=== PATIENT | female | born 1980 | race Hispanic/Latino ===

== ENCOUNTER 2017-12-09 15:37 | Inpatient (IN) | payer MEDICAID ==
[~2017-12-09] VITALS: Ht 162.6 cm; Wt 82.1 kg
[~2017-12-09 15:37] MED LIST: CELE-84 PO; GABA-531 PO; LETR2.5T6 PO; MORP15TA PO; MORPHINE PO; SENN-175 PO; [UNRECOGNIZED DRUG - CODE] PO
[2017-12-09 17:04] VITALS: BP 136/71
[2017-12-09 17:32] LABS: HEMATOCRIT 34.8 % (36-48); MEAN CORPUSCULAR HEMOGLOBIN 34.7 pg (27.0-33.0); MEAN CORPUSCULAR HGB CONC 35.7 g/dL (32.0-36.0); MEAN CORPUSCULAR VOLUME 97.3 fL (79-99); NUCLEATED RED BLOOD CELLS 0.1 % (0.0-0.19); PLATELET COUNT (AUTO) 182 K/uL (130-400); RED BLOOD CELL COUNT(AUTO) 3.58 MIL/uL (4.00-5.50)
[2017-12-09 17:45] LABS: ALBUMIN 4.1 g/dL (3.5-5.0); BILIRUBIN,TOTAL 0.5 mg/dL (0.2-1.0); CREATININE 0.9 mg/dL (0.5-1.5); POTASSIUM 4.1 mmol/L (3.5-5.1); TOTAL PROTEIN, SERUM 7.2 g/dL (6.0-8.3)
[2017-12-09] MEDS ORDERED: ONDANSETRON HCL 4 MG/2 ML VIAL IVP PRN (17:45)
[2017-12-09] MEDS ORDERED: SODIUM CHLORIDE 0.9% 1000ML 1,000 ML IV SCH (17:45)
[2017-12-09] MEDS ORDERED: PALB125C PO (18:00)
[2017-12-09 20:30] VITALS: BP 133/77
[2017-12-09] MEDS: FAMOTIDINE/PF 20 MG/2 ML VIAL IV SCH (22:17)
[2017-12-09] MEDS: LACTATED RINGERS 1000ML 1,000 ML IV SCH (22:17)
[2017-12-09] MEDS: MORPHINE SULFATE 2 MG/ML 1ML SYG IVP PRN (22:19)
[2017-12-10] VITALS: BP 122/66
[2017-12-10 01:19] LABS: APPEARANCE,URINE CLEAR (CLEAR); BILIRUBIN,URINE NEGATIVE (NEGATIVE); COLOR,URINE YELLOW (YELLOW); GLUCOSE, URINE (UA) NEGATIVE (NEGATIVE); KETONES,URINE 5 mg/dL (NEGATIVE); LEUKOCYTE ESTERASE ,URINE TRACE (NEGATIVE); NITRATE,URINE NEGATIVE (NEGATIVE); OCCULT BLOOD,URINE TRACE-INTACT (NEGATIVE); PROTEIN,URINE NEGATIVE (NEGATIVE); UROBILINOGEN,URINE 0.2 mg/dL (0.2-1.0)
[2017-12-10 01:25] LABS: BACTERIA,URINE Rare /HPF (None Seen); WBC,URINE 0-1 /HPF (0-1)
[2017-12-10 04:00] VITALS: BP 119/58
[2017-12-10] MEDS: LACTATED RINGERS 1000ML 1,000 ML IV SCH ×2 (06:40→12:12)
[2017-12-10] MEDS: MORPHINE SULFATE 2 MG/ML 1ML SYG IVP PRN ×2 (06:40→23:22)
[2017-12-10 07:30] VITALS: BP 105/53
[2017-12-10] MEDS: FAMOTIDINE/PF 20 MG/2 ML VIAL IV SCH ×2 (08:36→20:44)
[2017-12-10 11:00] VITALS: BP 126/63
[2017-12-10 16:00] VITALS: BP 131/73
[2017-12-10 20:00] VITALS: BP 148/57
[2017-12-10 21:52] LABS: CREATININE 0.9 mg/dL (0.5-1.5); POTASSIUM 3.8 mmol/L (3.5-5.1)
[2017-12-11] VITALS: BP 123/69
[2017-12-11] MEDS: LACTATED RINGERS 1000ML 1,000 ML IV SCH ×4 (02:50→12:40)
[2017-12-11 04:00] VITALS: BP 132/60
[2017-12-11 08:12] VITALS: BP 108/52
[2017-12-11] MEDS: FAMOTIDINE/PF 20 MG/2 ML VIAL IV SCH ×2 (08:40→20:14)
[2017-12-11 11:54] VITALS: BP 125/70
[2017-12-11] MEDS ORDERED: MORPHINE SULFATE 15 MG TABLET.SA PO PRN ×2 (14:15)
[2017-12-11 17:13] VITALS: BP 124/67
[2017-12-11 20:00] VITALS: BP 132/79
[2017-12-11] MEDS: CELECOXIB 200 MG CAP PO SCH (20:14)
[2017-12-12] VITALS: BP 141/68
[2017-12-12] MEDS: MORPHINE SULFATE 2 MG/ML 1ML SYG IVP PRN (00:02)
[2017-12-12] MEDS: LACTATED RINGERS 1000ML 1,000 ML IV SCH ×3 (03:22→12:00)
[2017-12-12 04:00] VITALS: BP 113/63
[2017-12-12 07:00] VITALS: BP 108/63
[2017-12-12] MEDS ORDERED: Letrozole 2.5 MG PO SCH (09:00)
[2017-12-12] MEDS: FAMOTIDINE/PF 20 MG/2 ML VIAL IV SCH ×2 (09:57→09:59)
[2017-12-12] MEDS: CELECOXIB 200 MG CAP PO SCH (09:57)
[2017-12-12 11:00] VITALS: BP 138/73
== END 2017-12-12 14:21 | disposition home or self-care (01) | DRG 247 ==
LOC: EDH 15:37 → OBSVTOIN 15:38 → EDHIP 15:38 → 3DH 17:03
PROVIDERS: ADMIT Internal Medicine Hematology & Oncology; ATTEND Internal Medicine Hematology & Oncology
DX: K56.600 Partial intestinal obstruction, unspecified as to cause (principal); C79.51 Secondary malignant neoplasm of bone; C50.919 Malignant neoplasm of unspecified site of unspecified female breast; M84.40XA Pathological fracture, unspecified site, initial encounter for fracture; E86.0 Dehydration; Z51.11 Encounter for antineoplastic chemotherapy; Z96.649 Presence of unspecified artificial hip joint
CPT/HCPCS: 36415; 80048; 80053; 81001; 85027; 87088; 87186; J2405; J3490; J7120

== ENCOUNTER 2018-07-17 07:36 | Inpatient (IN) | payer MEDICAID ==
[~2018-07-17] VITALS: Ht 165.1 cm; Wt 81.6 kg
[~2018-07-17 07:36] MED LIST changes: -GABA-531 PO; +MORP15T PO; -MORP15TA PO; -MORPHINE PO; +PALB125C PO; +PREG75 PO; -SENN-175 PO; -[UNRECOGNIZED DRUG - CODE] PO
[2018-07-17 07:56] LABS: BASOPHILS % (AUTO) 0.2 % (0.0-5.0); HEMATOCRIT 33.2 % (36-48); MEAN CORPUSCULAR HEMOGLOBIN 34.2 pg (27.0-33.0); MEAN CORPUSCULAR VOLUME 97.6 fL (79-99); MONOCYTES % (AUTO) 6.9 % (3.0-13.0); NEUTROPHILS % (AUTO) 84.9 % (40.0-77.0); NUCLEATED RED BLOOD CELLS 0.1 % (0.0-0.19); PLATELET COUNT (AUTO) 256 K/uL (130-400); RED CELL DISTRIBUTION WIDTH 16.9 % (11.0-15.5); WHITE BLOOD COUNT (AUTO) 5.8 K/uL (4.8-10.8)
[2018-07-17 08:02] LABS: CREATININE 1.1 mg/dL (0.5-1.5); POTASSIUM 3.1 mmol/L (3.5-5.1)
[2018-07-17 08:08] LABS: ALBUMIN 3.4 g/dL (3.5-5.0); BILIRUBIN,TOTAL 0.3 mg/dL (0.2-1.0); TOTAL PROTEIN, SERUM 6.6 g/dL (6.0-8.3)
[2018-07-17 08:14] LABS: APPEARANCE,URINE Clear (CLEAR); BILIRUBIN,URINE Negative (NEGATIVE); COLOR,URINE Yellow (YELLOW); GLUCOSE, URINE (UA) Negative (NEGATIVE); KETONES,URINE Negative (NEGATIVE); LEUKOCYTE ESTERASE ,URINE Trace (NEGATIVE); NITRATE,URINE Negative (NEGATIVE); OCCULT BLOOD,URINE Trace (NEGATIVE); PH,URINE 7.5 (5.0-8.0); PROTEIN,URINE Negative (NEGATIVE); UROBILINOGEN,URINE 0.2 mg/dL (0.2-1.0)
[2018-07-17] MEDS ORDERED: SODIUM CHLORIDE 0.9% 1000ML 1,000 ML IV ONE (08:20)
[2018-07-17] MEDS ORDERED: POTASSIUM BICARB/CIT AC 25 MEQ TABLET.EFF ONE (08:20)
[2018-07-17 09:01] LABS: BACTERIA,URINE Rare /HPF (None Seen); RBC,URINE 0-1 /HPF (0-1); SQUAMOUS EPITHELIAL CELL,UR Rare /HPF (0-2); WBC,URINE 0-1 /HPF (0-1)
[2018-07-17] MEDS ORDERED: SODIUM CHLORIDE 0.9% 50 ML IV ONE (09:55)
[2018-07-17] MEDS ORDERED: ZOSYN 3.375GM+NS 50ML 50 ML IV ONE (09:55)
[2018-07-17] MEDS ORDERED: SODIUM CHLORIDE 0.9% 1000ML 2,000 ML IV ONE (09:55)
--- NOTE | 2018-07-17 15:35 | NUR ---
ER ADMIT PATIENT RECEIVED FROM ER VIA WHEELCHAIR ACCOMPANIED BY FEMALE VISITOR. NO OBVIOUS SIGNS OF DISTRESS. IV TO THE LEFT ANTECUBITAL IS PATENT WITH NO REDNESS OR SWELLING NOTED. FLUSHES WELL. BOTH HAVE BEEN ORIENTED TO ROOM AND USE OF CALL LIGHT. BED IS IN LOWEST POSITION AND LOCKED WITH ALL PERSONAL BELONGINGS WITHIN REACH.
[2018-07-17 15:46] VITALS: BP 129/83
[2018-07-17] MEDS ORDERED: DEXA4TAB PO (16:07)
[2018-07-17] MEDS ORDERED: LORA1TAB3 PO (16:07)
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
[2018-07-17] MEDS ORDERED: KETOROLAC TROMETHAMINE 30MG/ML IV PRN (16:15)
[2018-07-17] MEDS: SODIUM CHLORIDE 0.9% 1000ML 1,000 ML IV SCH (16:41)
[2018-07-17] MEDS ORDERED: POTASSIUM CHLORIDE 10% ELIXIR 20 MEQ/15 ML UDCUP PO PRN (18:00)
[2018-07-17] MEDS ORDERED: POTASSIUM CHLORIDE 20MEQ/100ML 100 ML IV PRN (18:00)
[2018-07-17] MEDS ORDERED: LIDOCAINE HCL-MPF 1% 2ML VIAL IVP PRN (18:00)
--- NOTE | 2018-07-17 18:00 | NUR ---
PSYCHIATRY DR. HOLDEN HAS BEEN PAGED 3 TIMES THIS AFTERNOON AND WE HAVE NOT RECEIVED A CALL BACK. WILL ENDORSE TO ONCOMING SHIFT.
[2018-07-17] MEDS: POTASSIUM CHLORIDE 20 MEQ ERTAB PO PRN (18:22)
[2018-07-17 19:42] VITALS: BP 130/59
[2018-07-17 23:58] VITALS: BP 132/71
[2018-07-18] MEDS: LORAZEPAM 2 MG/ML 1 ML VIAL IVP PRN ×4 (00:10→21:22)
[2018-07-18 04:00] VITALS: BP 112/63
[2018-07-18] MEDS: POTASSIUM CHLORIDE 20 MEQ ERTAB PO PRN ×4 (06:14→22:52)
[2018-07-18 07:45] VITALS: BP 125/85
[2018-07-18 08:25] LABS: BASOPHILS % (AUTO) 0.3 % (0.0-5.0); EOSINOPHILS % (AUTO) 0.3 % (0.0-8.0); HEMATOCRIT 31.8 % (36-48); MEAN CORPUSCULAR HEMOGLOBIN 32.8 pg (27.0-33.0); MEAN CORPUSCULAR HGB CONC 33.8 g/dL (32.0-36.0); MONOCYTES % (AUTO) 5.9 % (3.0-13.0); NEUTROPHILS % (AUTO) 75.5 % (40.0-77.0); NUCLEATED RED BLOOD CELLS 0.1 % (0.0-0.19); PLATELET COUNT (AUTO) 219 K/uL (130-400); RED BLOOD CELL COUNT(AUTO) 3.28 MIL/uL (4.00-5.50); RED CELL DISTRIBUTION WIDTH 17.3 % (11.0-15.5); WHITE BLOOD COUNT (AUTO) 3.7 K/uL (4.8-10.8)
[2018-07-18 08:38] LABS: ALBUMIN 2.9 g/dL (3.5-5.0); BILIRUBIN,TOTAL 0.3 mg/dL (0.2-1.0); CREATININE 0.6 mg/dL (0.5-1.5); MAGNESIUM 1.9 mg/dL (1.80-2.40); POTASSIUM 3.3 mmol/L (3.5-5.1)
[2018-07-18] MEDS ORDERED: DRON2.5C12 PO (09:08)
[2018-07-18 11:39] VITALS: BP 130/59
[2018-07-18 16:20] VITALS: BP 123/69
--- NOTE | 2018-07-18 17:14 | NUR ---
INITIAL: Met with pt this afternoon to discuss dcp. Visitors in the room, per pt ok to discuss dcp. Prior to admission she was living w her parents. Used a cane for ambulation but recently was using a rollator. Pt has at home a provider 3hr/day. Pt states that she also has a tub bench. Per pt her parents provide transportation where needed. Pt states that she feels safe and comfortable to return home at mt. Will continue to follow and wait for Md recommendations. Addendum: 07/18/18 at 1717 by RITU CONDE CM Amended: Links added.
[2018-07-18 19:48] VITALS: BP 116/68
[2018-07-18] MEDS: CELECOXIB 200 MG CAP PO SCH (21:22)
[2018-07-18] MEDS: SODIUM CHLORIDE 0.9% 1000ML 1,000 ML IV SCH (21:22)
[2018-07-18] MEDS: DRONABINOL 2.5 MG CAP PO SCH (21:22)
[2018-07-18 23:47] VITALS: BP 108/61
[2018-07-19 04:00] VITALS: BP 129/78
[2018-07-19] MEDS: LORAZEPAM 2 MG/ML 1 ML VIAL IVP PRN ×3 (05:41→21:20)
[2018-07-19] MEDS: CELECOXIB 200 MG CAP PO SCH ×2 (07:45→21:19)
[2018-07-19] MEDS: DEXAMETHASONE 4 MG TAB PO SCH (07:45)
--- NOTE | 2018-07-19 09:30 | NUR ---
DR. KARIE TIWARI IN TO SEE PATIENT. NO NEW ORDERS AT THIS TIME. D/C PLAN FOR TOMORROW. WAS NOTIFIED OF PSYCHIATRIST NOT ANSWERING PAGES FOR CONSULT. DR. TIWARI STATES NOT TO BOTHER WITH THAT TODAY. HE WILL TAKE CARE OF IT TOMORROW.
[2018-07-19 11:28] VITALS: BP 116/59
[2018-07-19 16:30] VITALS: BP 121/68
[2018-07-19 19:36] VITALS: BP 125/73
[2018-07-19] MEDS: DRONABINOL 2.5 MG CAP PO SCH (21:19)
[2018-07-19] MEDS: SODIUM CHLORIDE 0.9% 1000ML 1,000 ML IV SCH (21:20)
[2018-07-20] VITALS (7 sets, daily range): BP systolic 100–144; BP diastolic 59–81
[2018-07-20] MEDS: SODIUM CHLORIDE 0.9% 1000ML 1,000 ML IV SCH (04:15)
[2018-07-20] MEDS: LORAZEPAM 2 MG/ML 1 ML VIAL IVP PRN ×2 (07:00→13:37)
[2018-07-20] MEDS: CELECOXIB 200 MG CAP PO SCH ×2 (09:50→21:10)
[2018-07-20] MEDS: DEXAMETHASONE 4 MG TAB PO SCH (09:50)
--- NOTE | 2018-07-20 09:55 | NUR ---
Pt. took 2mg of Decadron, states she is supposed to start with 2mg today as she is being weaned down.
--- NOTE | 2018-07-20 10:55 | NUR ---
Called Dr. Richards office r/t consult, faxed face sheet.
--- NOTE | 2018-07-20 12:31 | NUR ---
Dr. Gonzalez in to see pt, notified him pt. stated she was supposed to decrease her Decadron to 2mg daily and that I only gave her 2mg. stated yes, order to be changed. Also notified him I called Dr. Marcelo office this am for the consult.
[2018-07-20] MEDS ORDERED: LORAZEPAM 1 MG TABLET PO SCH (18:30)
[2018-07-20] MEDS ORDERED: RISPERIDONE 1 MG TABLET PO SCH (21:00)
[2018-07-20] MEDS: DRONABINOL 2.5 MG CAP PO SCH (21:11)
[2018-07-21] MEDS: SODIUM CHLORIDE 0.9% 1000ML 1,000 ML IV SCH ×2 (00:15→21:46)
[2018-07-21 03:50] VITALS: BP 123/72
[2018-07-21 07:02] VITALS: BP 120/65
[2018-07-21] MEDS: CELECOXIB 200 MG CAP PO SCH ×2 (09:00→21:43)
[2018-07-21] MEDS: DEXAMETHASONE 4 MG TAB PO SCH (09:01)
[2018-07-21] MEDS: LORAZEPAM 2 MG/ML 1 ML VIAL IVP PRN (09:01)
[2018-07-21 11:48] VITALS: BP 124/78
[2018-07-21] MEDS ORDERED: LORAZEPAM 0.5 MG TABLET PO SCH ×2 (14:15→18:00)
[2018-07-21 16:09] VITALS: BP 126/78
[2018-07-21 19:30] VITALS: BP 123/67
[2018-07-21] MEDS ORDERED: RISPERIDONE 1 MG TABLET PO SCH (21:00)
[2018-07-21] MEDS: DRONABINOL 2.5 MG CAP PO SCH (21:43)
[2018-07-21 23:40] VITALS: BP 99/42
[2018-07-22 08:00] VITALS: BP 114/57
[2018-07-22] MEDS: CELECOXIB 200 MG CAP PO SCH (08:46)
[2018-07-22] MEDS: DEXAMETHASONE 4 MG TAB PO SCH (08:46)
[2018-07-22] MEDS ORDERED: LORAZEPAM 0.5 MG TABLET PO SCH (09:00)
[2018-07-22] MEDS ORDERED: RISPERIDONE 1 MG TABLET PO SCH (09:00)
--- NOTE | 2018-07-22 10:00 | NUR ---
DR. TIWARI RECEIVED PHONE CALL FROM REGARDING PATIENT STATUES. INFORMED MD THAT PATIENT IS DOING WELL TODAY, COOPERATIVE, REPORTS READY TO GO HOME TODAY AND PATIENT APPEARS TO BE IN A HAPPY MOOD. MD REPLIED IT WAS OKAY TO PROCEED WITH DISCHARGE AND FOR PATIENT TO F/U WITH MD. DR. TIWARI STATED HE WILL CALL IN PATIENTS PRESCRIPTIONS TO PATIENTS PHARMACY, REFERING TO THE ATIVAN AND RISPERDAL PATIENT WAS STARTED ON IN THE HOSPITAL.
[2018-07-22 11:32] VITALS: BP 120/64
== END 2018-07-22 14:03 | disposition home or self-care (01) | DRG 776 ==
LOC: EDH 07:36 → OBSVTOIN 07:37 → EDHIP 07:37 → EEVIPCON 07:37 → 4AH 14:59
PROVIDERS: ADMIT Internal Medicine Hematology & Oncology; ATTEND Internal Medicine Hematology & Oncology
DX: F19.239 Other psychoactive substance dependence with withdrawal, unspecified (principal); F23 Brief psychotic disorder; E87.6 Hypokalemia; F30.9 Manic episode, unspecified; F42.9 Obsessive-compulsive disorder, unspecified; F43.22 Adjustment disorder with anxiety; F60.0 Paranoid personality disorder; Z96.649 Presence of unspecified artificial hip joint; Z85.3 Personal history of malignant neoplasm of breast; Z92.3 Personal history of irradiation; Z90.49 Acquired absence of other specified parts of digestive tract; Z85.830 Personal history of malignant neoplasm of bone
CPT/HCPCS: 36415; 70450; 71045; 80053; 81001; 83605; 83735; 84132; 84484; 85025; 87040; 93005; G0378; J2060; J2543; J7030; J8540; Q0167

== ENCOUNTER 2019-04-07 14:38 | Inpatient (IN) | payer MEDICAID, OTHER ==
[~2019-04-07] VITALS: Ht 165.1 cm; Wt 74.4 kg
[~2019-04-07 14:38] MED LIST changes: +AMOX-429 PO; +CIPR750T6 PO; +DRON2.5C12 PO; +LORA0.5T2 PO; -MORP15T PO; +OCEAN NASAL; +ONDA8TAB12 PO; -PREG75 PO; +RISP0.5T61 PO; +SILV20CR11 TP
[2019-04-07 16:00] VITALS: BP 131/66
[2019-04-07] MEDS ORDERED: COMPOUND IV MISC 1 EACH IVSOLN MISC PRN (18:00)
[2019-04-07 19:00] VITALS: BP 116/58
[2019-04-07] MEDS ORDERED: HYDR-4060 PO (20:11)
[2019-04-07] MEDS ORDERED: EXEM25TA PO (20:11)
[2019-04-07] MEDS ORDERED: MIRT7.5T11 PO (20:11)
[2019-04-07] MEDS ORDERED: LORA1TAB3 PO (20:11)
[2019-04-07] MEDS ORDERED: NAPR500T6 PO (20:11)
[2019-04-07] MEDS ORDERED: LORAZEPAM 1 MG TABLET PO PRN (20:15)
[2019-04-07] MEDS ORDERED: NAPROXEN 500 MG TABLET PO PRN (20:15)
[2019-04-07] MEDS: IRON SUCROSE COMPLEX 100 MG in SODIUM CHLORIDE 0.9% 50 ML IV SCH (21:04)
[2019-04-07] MEDS: MIRTAZAPINE 15 MG TABLET PO SCH (21:12)
[2019-04-07] MEDS: EPOETIN ALFA 10,000 UNIT/ML VIAL SQ SCH (21:12)
[2019-04-07] MEDS: LORAZEPAM 0.5 MG TABLET PO PRN (22:12)
[2019-04-07] MEDS: HYDROCODONE/ACETAMINOPHEN 5/325 MG TAB PO PRN (22:58)
[2019-04-08] VITALS (7 sets, daily range): BP systolic 102–132; BP diastolic 55–77
[2019-04-08] MEDS: EXEMESTANE 25 MG PO SCH (09:00)
[2019-04-08] MEDS: HYDROCODONE/ACETAMINOPHEN 5/325 MG TAB PO PRN ×2 (11:00→21:58)
--- NOTE | 2019-04-08 11:50 | NUR ---
PT REFUSING IV STATES SHE WILL COMPLY ONCE THE VENOFER IS DUE AGAIN CHARGE NURSE AWARE IV REMOVED,CATHETER TIP INTACT
[2019-04-08] MEDS: LORAZEPAM 0.5 MG TABLET PO PRN ×2 (12:11→21:57)
--- NOTE | 2019-04-08 16:58 | NUR ---
DR. TIWARI AWARE PT REFUSING IV, UNTIL VENOFER INFUSING STATED , OK
--- NOTE | 2019-04-08 16:59 | NUR ---
SPOKE W/ MICHAEL ABOUT DR. HERNANDEZ'S ORDERS REGARDING LABORATORY H&H AND SPECIFIC INSTRUCTIONS
[2019-04-08] MEDS: MIRTAZAPINE 15 MG TABLET PO SCH (21:57)
[2019-04-08] MEDS: EPOETIN ALFA 10,000 UNIT/ML VIAL SQ SCH (21:58)
[2019-04-08] MEDS: IRON SUCROSE COMPLEX 100 MG in SODIUM CHLORIDE 0.9% 50 ML IV SCH (22:15)
[2019-04-09 04:00] VITALS: BP 123/67
[2019-04-09 04:10] LABS: HEMATOCRIT 10.4 % (36-48)
--- NOTE | 2019-04-09 07:45 | NUR ---
NOTE AAOX3. DNEIES PAIN SLIGHT SOB WITHOUT EXERTION. O2@2LNC. SHE CAME IN WITH HGB 3.6 AND REFUSES BLOOD TRANSFUSIONS DUE TO HER WORSHIP. WILL CONTINUE TO GIVE HER PROCRIT AND DOROTHY MD ORDERED.
[2019-04-09 07:49] VITALS: BP 109/57
[2019-04-09] MEDS: EXEMESTANE 25 MG PO SCH (09:00)
[2019-04-09 11:15] VITALS: BP 120/58
[2019-04-09] MEDS: LORAZEPAM 0.5 MG TABLET PO PRN ×2 (12:51→20:39)
[2019-04-09 13:31] LABS: MEAN CORPUSCULAR HGB CONC 33.7 g/dL (32.0-36.0); PLATELET COUNT (AUTO) 55 K/uL (130-400); RED BLOOD CELL COUNT(AUTO) 1.05 MIL/uL (4.00-5.50); RED CELL DISTRIBUTION WIDTH 23.6 % (11.0-15.5); WHITE BLOOD COUNT (AUTO) 1.3 K/uL (4.8-10.8)
--- NOTE | 2019-04-09 16:00 | NUR ---
INITIAL AND DISCUSSION FO DNR STATUS MET W PATIENT- DAUGHTER MARC 16 YRS AND MOM RODRIGO AT BEDSIDE. PT ON O2,,AAOX3, PALE AND SHORT OF BREATH BUT AAOX3; LIVES W MINOR DAUGHTER MARC WHO PROVIDE TRANSPORT FOR PT WHEN ABLE, MOM RODRIGO ALSO INVOLVED IN TRANSPORT AND CARE. PT WAS DXD IN 2017, TAKES DAILY 'PILL FO RCHEMO, HAS BEEN ANEMIC BEFORE BUT NEVER THIS BAD. USES A CANE ONLY, HOME IS SAFE AND ACCESSIBLE; NO HH OR PROVIDER SERVICES DISCUSSED GRAVE RISK W H/H H THIS LOW; STATES HAD CHEST PAIN PRIOR TO THE OXYGEN BEING APPLIED, CM ASKED [facility] WISHES IF PT HAS A LETHAL RYTHMN, PT STATES WOULD NOT WANT TO BE RESUSCITATED, WILL CALL DR. DOMINGUEZ FOR ORDER. WILL ASK FOR B COMPLEX VITAMIN WELL. [facility] NURSE TO BE INFORMED ORDERS ARE FOR EPOGEN AND IRON X 5 DAYS. DCP HOME AFTER THIS PLAN COMPLETED Addendum: 04/09/19 at 2123 by MAGO CHENG RN CM Amended: Links added.
[2019-04-09 16:22] VITALS: BP 136/61
[2019-04-09] MEDS ORDERED: VITAMIN B COMPLEX 1 CAPSULE PO SCH (16:45)
--- NOTE | 2019-04-09 18:00 | NUR ---
NOTE CONTINUES WITH SOB WITH NO EXERTION. O2@2LNC. TELEMETRY ST 110'S. SHE CONTINUES TO BE IN NEUTROPENIC PRECAUTIONS FOR WBC 1.6
[2019-04-09 20:05] VITALS: BP 112/56
[2019-04-09] MEDS: IRON SUCROSE COMPLEX 100 MG in SODIUM CHLORIDE 0.9% 50 ML IV SCH (20:32)
[2019-04-09] MEDS: EPOETIN ALFA 10,000 UNIT/ML VIAL SQ SCH (20:32)
[2019-04-09] MEDS: MIRTAZAPINE 15 MG TABLET PO SCH (20:39)
[2019-04-09] MEDS ORDERED: ACETAMINOPHEN 325 MG TAB ONE (23:40)
[2019-04-09] MEDS ORDERED: ZOSYN 3.375GM+NS 50ML 50 ML IV ONE (23:41)
[2019-04-09 23:52] VITALS: BP 121/51
[2019-04-10 04:18] VITALS: BP 106/54
[2019-04-10 07:37] VITALS: BP 122/57
[2019-04-10 07:40] LABS: MEAN CORPUSCULAR HEMOGLOBIN 35.6 pg (27.0-33.0); MEAN CORPUSCULAR HGB CONC 35.4 g/dL (32.0-36.0); MEAN CORPUSCULAR VOLUME 100.6 fL (79-99); PLATELET COUNT (AUTO) 50 K/uL (130-400); RED BLOOD CELL COUNT(AUTO) 1.03 MIL/uL (4.00-5.50); RED CELL DISTRIBUTION WIDTH 23.4 % (11.0-15.5)
[2019-04-10 07:46] LABS: HEMATOCRIT 10.4 % (36-48)
[2019-04-10 08:13] LABS: BAND NEUTROPHILS % (MANUAL) 2 % (0-2); BASOPHILS % (MANUAL) 2 % (0-2); CORRECTED WHITE BLOOD COUNT 2.2 K/uL (4.5-11.0); EOSINOPHILS % (MANUAL) 1 % (1-6); LYMPHOCYTES % (MANUAL) 50 % (22-44); METAMYELOCYTES % 2 % (0-0); MONOCYTES % (MANUAL) 5 % (2-9); MYELOCYTES % 2 % (0-0); NUCLEATED RED BLOOD CELLS 33.5 % (0.0-0.19); SEGMENTED NEUTROPHILS % 36 % (40-70)
[2019-04-10 08:14] LABS: PLATELET MORPHOLOGY COMMENT MARKED DECREASE
[2019-04-10] MEDS: EXEMESTANE 25 MG PO SCH (09:00)
--- NOTE | 2019-04-10 09:00 | NUR ---
DR. LOPEZ SPOKE TO MD VIA TELEPHONE REGARDING CONSULT.
[2019-04-10] MEDS: VITAMIN B COMPLEX 1 CAPSULE PO SCH (09:17)
[2019-04-10] MEDS: TBO-FILGRASTIM 480 MCG/0.8 ML ML SQ SCH (09:17)
[2019-04-10] MEDS: ZOSYN 3.375GM+NS 50ML 50 ML IV SCH ×2 (09:17→16:00)
[2019-04-10] MEDS ORDERED: VANCOMYCIN PROTOCOL PER PHARMACY IV SCH (10:30)
[2019-04-10] MEDS ORDERED: COMPOUND IV REFRIGERATED 1 EACH IVSOLN MISC PRN (10:30)
[2019-04-10 11:12] VITALS: BP 119/63
[2019-04-10] MEDS: HYDROCODONE/ACETAMINOPHEN 5/325 MG TAB PO PRN ×2 (11:26→21:26)
[2019-04-10] MEDS: VANCOMYCIN 1.25 GM in SODIUM CHLORIDE 0.9% 250 ML IV SCH ×2 (11:27→22:09)
[2019-04-10] MEDS: LORAZEPAM 0.5 MG TABLET PO PRN ×2 (11:28→21:18)
[2019-04-10 17:05] VITALS: BP 128/56
[2019-04-10 19:34] VITALS: BP 119/58
[2019-04-10] MEDS: EPOETIN ALFA 10,000 UNIT/ML VIAL SQ SCH (20:00)
[2019-04-10] MEDS: MIRTAZAPINE 15 MG TABLET PO SCH (21:11)
[2019-04-10] MEDS: IRON SUCROSE COMPLEX 100 MG in SODIUM CHLORIDE 0.9% 50 ML IV SCH (21:11)
--- NOTE | 2019-04-10 21:53 | NUR ---
Re: Procrit House Super DJ made aware that I was missing tonight's dose of Procrit as I send notification to Pharmacy before 2099, nothing was delivered. Per DJ dose will be given tomorrow as Pharmacist won't come if for such medication. I will report to pharmacist & incoming re: this issue in AM.
[2019-04-10] MEDS: ACETAMINOPHEN 325 MG TAB PO PRN (23:29)
[2019-04-10 23:49] VITALS: BP 121/54
[2019-04-11] MEDS: ZOSYN 3.375GM+NS 50ML 50 ML IV SCH ×3 (00:13→17:20)
[2019-04-11 03:30] VITALS: BP 106/58
[2019-04-11 08:00] VITALS: BP 122/54
[2019-04-11 08:14] LABS: MEAN CORPUSCULAR HEMOGLOBIN 34.3 pg (27.0-33.0); MEAN CORPUSCULAR HGB CONC 34.3 g/dL (32.0-36.0); MEAN CORPUSCULAR VOLUME 100.1 fL (79-99); PLATELET COUNT (AUTO) 46 K/uL (130-400); RED BLOOD CELL COUNT(AUTO) 1.04 MIL/uL (4.00-5.50); RED CELL DISTRIBUTION WIDTH 23.8 % (11.0-15.5)
[2019-04-11 08:17] LABS: HEMATOCRIT 10.4 % (36-48)
[2019-04-11] MEDS: EXEMESTANE 25 MG PO SCH (09:00)
[2019-04-11] MEDS: VITAMIN B COMPLEX 1 CAPSULE PO SCH (09:07)
[2019-04-11] MEDS: TBO-FILGRASTIM 480 MCG/0.8 ML ML SQ SCH (09:08)
[2019-04-11 09:31] LABS: BAND NEUTROPHILS % (MANUAL) 7 % (0-2); CORRECTED WHITE BLOOD COUNT 3.3 K/uL (4.5-11.0); LYMPHOCYTES % (MANUAL) 21 % (22-44); METAMYELOCYTES % 1 % (0-0); MONOCYTES % (MANUAL) 15 % (2-9); NUCLEATED RED BLOOD CELLS 51.4 % (0.0-0.19); REACTIVE LYMPHOCYTES 2 % (0-0); SEGMENTED NEUTROPHILS % 54 % (40-70)
[2019-04-11 09:32] LABS: PLATELET MORPHOLOGY COMMENT MARKED DECREASE
[2019-04-11] MEDS: VANCOMYCIN 1.25 GM in SODIUM CHLORIDE 0.9% 250 ML IV SCH ×2 (10:42→21:42)
[2019-04-11] MEDS: EPOETIN ALFA 10,000 UNIT/ML VIAL SQ SCH (10:43)
[2019-04-11 11:00] VITALS: BP 120/55
[2019-04-11] MEDS: LORAZEPAM 0.5 MG TABLET PO PRN ×2 (12:09→21:07)
[2019-04-11 16:27] VITALS: BP 118/65
--- NOTE | 2019-04-11 18:30 | NUR ---
NOTE CONTINUES WITH NEUTROPENIC ISOLATION. HER WBC GOING UP. WILL HAVE RECHECK TOMORROW AND WILL NOTIFY DR TIWARI OF RESULTS. ALSO WITH H/H VERY LOW IN THE 3 LEVEL BUT CONTINUES TO STAND WITH HER BUDDHIST BELIEFS AND REFUSES BLOOD TRANSFUSIONS. SHE WILL CONTINUE TO RECEIVE PROCRIT INJECTIONS. SHE IS ON O2@2LNC AND WITH SOB WITH MINNIMAL EXERTION AND WITH TELEMETRY ST UP TO 120'S WITH EXERTION.
[2019-04-11 19:34] VITALS: BP 124/59
[2019-04-11] MEDS: IRON SUCROSE COMPLEX 100 MG in SODIUM CHLORIDE 0.9% 50 ML IV SCH (20:24)
[2019-04-11] MEDS: MIRTAZAPINE 15 MG TABLET PO SCH (20:24)
[2019-04-11] MEDS: ACETAMINOPHEN 325 MG TAB PO PRN (20:41)
[2019-04-11 23:37] VITALS: BP 106/50
[2019-04-12] MEDS: ZOSYN 3.375GM+NS 50ML 50 ML IV SCH ×3 (00:08→17:18)
[2019-04-12 04:00] VITALS: BP 115/58
[2019-04-12 08:00] VITALS: BP 108/50
[2019-04-12] MEDS: EXEMESTANE 25 MG PO SCH (09:00)
[2019-04-12 09:24] LABS: CORRECTED WHITE BLOOD COUNT 7.4 K/uL (4.5-11.0); MEAN CORPUSCULAR HEMOGLOBIN 34.7 pg (27.0-33.0); MEAN CORPUSCULAR HGB CONC 33.8 g/dL (32.0-36.0); MEAN CORPUSCULAR VOLUME 102.7 fL (79-99); NUCLEATED RED BLOOD CELLS 10.3 % (0.0-0.19); RED BLOOD CELL COUNT(AUTO) 1.06 MIL/uL (4.00-5.50); RED CELL DISTRIBUTION WIDTH 24.3 % (11.0-15.5); WHITE BLOOD COUNT (AUTO) 8.2 K/uL (4.8-10.8)
[2019-04-12] MEDS: TBO-FILGRASTIM 480 MCG/0.8 ML ML SQ SCH (09:24)
[2019-04-12 09:28] LABS: HEMATOCRIT 10.9 % (36-48)
[2019-04-12] MEDS: VANCOMYCIN 1GM+NS 250ML 250 ML IV SCH ×2 (09:33→17:18)
[2019-04-12] MEDS: VITAMIN B COMPLEX 1 CAPSULE PO SCH (09:33)
[2019-04-12 12:00] VITALS: BP 117/59
[2019-04-12 16:00] VITALS: BP 122/58
[2019-04-12] MEDS: IRON SUCROSE COMPLEX 100 MG in SODIUM CHLORIDE 0.9% 50 ML IV SCH (20:00)
[2019-04-12 20:23] VITALS: BP 111/54
[2019-04-12] MEDS: MIRTAZAPINE 15 MG TABLET PO SCH (20:45)
[2019-04-12] MEDS: LORAZEPAM 0.5 MG TABLET PO PRN (20:48)
[2019-04-12] MEDS: EPOETIN ALFA 10,000 UNIT/ML VIAL SQ SCH (20:53)
[2019-04-13] VITALS (7 sets, daily range): BP systolic 95–115; BP diastolic 40–53
[2019-04-13] MEDS: ZOSYN 3.375GM+NS 50ML 50 ML IV SCH ×3 (00:33→16:33)
[2019-04-13] MEDS: ACETAMINOPHEN 325 MG TAB PO PRN (01:13)
[2019-04-13] MEDS: VANCOMYCIN 1GM+NS 250ML 250 ML IV SCH ×3 (01:51→20:58)
[2019-04-13 04:44] LABS: MEAN CORPUSCULAR HGB CONC 32.7 g/dL (32.0-36.0); NUCLEATED RED BLOOD CELLS 9.7 % (0.0-0.19); RED BLOOD CELL COUNT(AUTO) 1.01 MIL/uL (4.00-5.50); RED CELL DISTRIBUTION WIDTH 24.7 % (11.0-15.5)
[2019-04-13 05:01] LABS: ALBUMIN 2.8 g/dL (3.5-5.0); BILIRUBIN,TOTAL 0.8 mg/dL (0.2-1.0); CREATININE 0.7 mg/dL (0.5-1.5); MAGNESIUM 2.1 mg/dL (1.80-2.40); POTASSIUM 4.3 mmol/L (3.5-5.1); TOTAL PROTEIN, SERUM 6.1 g/dL (6.0-8.3)
[2019-04-13 05:23] LABS: HEMATOCRIT 10.5 % (36-48)
[2019-04-13] MEDS: VITAMIN B COMPLEX 1 CAPSULE PO SCH (08:36)
[2019-04-13] MEDS: EXEMESTANE 25 MG PO SCH (09:00)
[2019-04-13] MEDS: FLUCONAZOLE 200 MG/NS 100 ML 100 ML IV SCH (12:24)
--- NOTE | 2019-04-13 17:53 | NUR ---
Nutrition Intervention: Nutrition screen based on LOS x 6 days. Pt. reports has lost 16# in 1 month due to decreased appetite. Pt. with Stg 4 Met. breast cancer. Pt. on Neutropenic diet with good p.o. intake, as per pt. Spoke with pt. regarding protein supplementation and pt. agreed to try. Labs reviewed(Alb 2.8, Na 151). LBM: 04/13/19, per pt. BMI: 27.3, overweight. Recommendations: 1) Continue current diet. 2) Rec. 30ml ProMod BID with B'fast and dinner meals. 3) Continue to monitor pt's nutritional status. 4) Consult RD as nutrition concerns arise. Addendum: 04/13/19 at [address] Amended: Links added.
[2019-04-13] MEDS: EPOETIN ALFA 10,000 UNIT/ML VIAL SQ SCH (20:58)
[2019-04-13] MEDS: LORAZEPAM 0.5 MG TABLET PO PRN (20:59)
[2019-04-13] MEDS: MIRTAZAPINE 15 MG TABLET PO SCH (20:59)
[2019-04-14] MEDS: ZOSYN 3.375GM+NS 50ML 50 ML IV SCH ×3 (00:19→16:03)
[2019-04-14 03:47] VITALS: BP 102/49
[2019-04-14 06:38] LABS: CORRECTED WHITE BLOOD COUNT 9.4 K/uL (4.5-11.0); MEAN CORPUSCULAR HEMOGLOBIN 33.7 pg (27.0-33.0); MEAN CORPUSCULAR HGB CONC 32.7 g/dL (32.0-36.0); MEAN CORPUSCULAR VOLUME 103.1 fL (79-99); NUCLEATED RED BLOOD CELLS 9.2 % (0.0-0.19); RED BLOOD CELL COUNT(AUTO) 1.02 MIL/uL (4.00-5.50); RED CELL DISTRIBUTION WIDTH 24.7 % (11.0-15.5); WHITE BLOOD COUNT (AUTO) 10.3 K/uL (4.8-10.8)
[2019-04-14 06:43] LABS: HEMATOCRIT 10.5 % (36-48)
[2019-04-14] MEDS: VANCOMYCIN 1GM+NS 250ML 250 ML IV SCH ×3 (06:44→20:50)
[2019-04-14 07:26] VITALS: BP 95/49
[2019-04-14] MEDS: EXEMESTANE 25 MG PO SCH (09:00)
[2019-04-14] MEDS: VITAMIN B COMPLEX 1 CAPSULE PO SCH (10:06)
[2019-04-14] MEDS: FLUCONAZOLE 200 MG/NS 100 ML 100 ML IV SCH (10:07)
[2019-04-14 11:21] VITALS: BP 134/57
[2019-04-14] MEDS: LORAZEPAM 0.5 MG TABLET PO PRN ×2 (12:29→20:51)
--- NOTE | 2019-04-14 15:00 | NUR ---
DISCUSSED POC W DR. TIWARI DISCHARGE? DR. Anton STATES: "HER HGB IS INCOMPATIBLE WITH LIFE" WILL DISCUSS POSSIBLITY OF DISCHARGE WITH HH AND OXYGEN WITH DR. Anton IN AM
[2019-04-14 16:28] VITALS: BP 98/44
--- NOTE | 2019-04-14 19:36 | NUR ---
DISCUSSED POC W DR. TIWARI DISCHARGE? DR. Anton STATES:HER HGB IS INCOMPATIBLE WITH LIFE" WILL DISCUSS POSSIBLITY OF DISCHARGE WITH HH AND OXYGEN
[2019-04-14 20:21] VITALS: BP 107/60
[2019-04-14] MEDS: EPOETIN ALFA 10,000 UNIT/ML VIAL SQ SCH (20:51)
[2019-04-14] MEDS: MIRTAZAPINE 15 MG TABLET PO SCH (20:51)
[2019-04-15] MEDS: ZOSYN 3.375GM+NS 50ML 50 ML IV SCH ×4 (00:06→23:38)
[2019-04-15 00:21] VITALS: BP 104/45
[2019-04-15 04:22] VITALS: BP 99/46
[2019-04-15] MEDS: VANCOMYCIN 1GM+NS 250ML 250 ML IV SCH ×3 (04:46→20:07)
[2019-04-15 07:06] LABS: CORRECTED WHITE BLOOD COUNT 16.6 K/uL (4.5-11.0); MEAN CORPUSCULAR HEMOGLOBIN 33.6 pg (27.0-33.0); NUCLEATED RED BLOOD CELLS 9.8 % (0.0-0.19); PLATELET COUNT (AUTO) 45 K/uL (130-400); RED BLOOD CELL COUNT(AUTO) 1.04 MIL/uL (4.00-5.50); RED CELL DISTRIBUTION WIDTH 24.7 % (11.0-15.5); WHITE BLOOD COUNT (AUTO) 18.2 K/uL (4.8-10.8)
[2019-04-15 07:57] VITALS: BP 113/55
[2019-04-15] MEDS: VITAMIN B COMPLEX 1 CAPSULE PO SCH (08:03)
[2019-04-15] MEDS: EXEMESTANE 25 MG PO SCH (08:04)
[2019-04-15 08:35] LABS: BAND NEUTROPHILS % (MANUAL) 5 % (0-2); BASOPHILS % (MANUAL) 1 % (0-2); BLASTS, MANUAL % 2 (0-0); EOSINOPHILS % (MANUAL) 3 % (1-6); LYMPHOCYTES % (MANUAL) 17 % (22-44); METAMYELOCYTES % 2 % (0-0); MONOCYTES % (MANUAL) 11 % (2-9); MYELOCYTES % 2 % (0-0); SEGMENTED NEUTROPHILS % 57 % (40-70)
[2019-04-15 08:37] LABS: MAN.DIFF COMMENT-IMPRESSION MANUAL DIFFERENTIAL
[2019-04-15] MEDS: FLUCONAZOLE 200 MG/NS 100 ML 100 ML IV SCH (10:09)
[2019-04-15] MEDS: LORAZEPAM 0.5 MG TABLET PO PRN ×2 (11:42→20:22)
[2019-04-15 12:03] VITALS: BP 107/59
[2019-04-15 16:00] VITALS: BP 126/65
[2019-04-15] MEDS: MIRTAZAPINE 15 MG TABLET PO SCH (20:22)
[2019-04-16 00:19] VITALS: BP 111/58
[2019-04-16] MEDS: VANCOMYCIN 1GM+NS 250ML 250 ML IV SCH ×3 (03:54→21:27)
[2019-04-16 04:18] VITALS: BP 105/56
[2019-04-16 07:17] LABS: CORRECTED WHITE BLOOD COUNT 23.6 K/uL (4.5-11.0); MEAN CORPUSCULAR HEMOGLOBIN 33.4 pg (27.0-33.0); MEAN CORPUSCULAR HGB CONC 31.6 g/dL (32.0-36.0); MEAN CORPUSCULAR VOLUME 105.7 fL (79-99); NUCLEATED RED BLOOD CELLS 9.6 % (0.0-0.19); RED BLOOD CELL COUNT(AUTO) 1.08 MIL/uL (4.00-5.50); RED CELL DISTRIBUTION WIDTH 24.9 % (11.0-15.5); WHITE BLOOD COUNT (AUTO) 25.9 K/uL (4.8-10.8)
[2019-04-16] MEDS: ZOSYN 3.375GM+NS 50ML 50 ML IV SCH ×2 (07:32→17:04)
[2019-04-16 07:57] LABS: HEMATOCRIT 11.4 % (36-48)
[2019-04-16 08:00] VITALS: BP 109/52
[2019-04-16] MEDS: EPOETIN ALFA 10,000 UNIT/ML VIAL SQ SCH (09:37)
[2019-04-16] MEDS: VITAMIN B COMPLEX 1 CAPSULE PO SCH (09:37)
[2019-04-16] MEDS: FLUCONAZOLE 200 MG/NS 100 ML 100 ML IV SCH (11:20)
[2019-04-16] MEDS: LORAZEPAM 0.5 MG TABLET PO PRN ×2 (11:26→21:25)
[2019-04-16 11:52] VITALS: BP 109/57
--- NOTE | 2019-04-16 13:14 | NUR ---
RD FOLLOW UP NOTE Pt tolerating current Regular, Neutropenic diet. Pt reports has not received protein supplement; RD to notify Pt food services. Pt with no complaints of GI distress. Pt LBM 04/16/19. H&H 3.6/11.4;Pt with refusal to blood transfusion due to synagogue. Recommend to continue current diet order. RD to continue to monitor. Please notify RD as additional nutrition concerns arise. Thank you. Addendum: 04/16/19 at [address] Amended: Links added.
[2019-04-16 16:00] VITALS: BP 105/63
[2019-04-16 19:30] VITALS: BP 102/54
[2019-04-16] MEDS: MIRTAZAPINE 15 MG TABLET PO SCH (21:24)
[2019-04-16] MEDS: FERROUS FUMARATE 324 MG TABLET PO SCH (21:25)
[2019-04-17] VITALS (7 sets, daily range): BP systolic 101–121; BP diastolic 48–67
[2019-04-17] MEDS: ZOSYN 3.375GM+NS 50ML 50 ML IV SCH ×4 (00:14→23:17)
[2019-04-17] MEDS: VANCOMYCIN 1GM+NS 250ML 250 ML IV SCH ×3 (04:19→21:00)
[2019-04-17 04:49] LABS: CORRECTED WHITE BLOOD COUNT 22.4 K/uL (4.5-11.0); MEAN CORPUSCULAR HEMOGLOBIN 33.6 pg (27.0-33.0); MEAN CORPUSCULAR HGB CONC 31.7 g/dL (32.0-36.0); MEAN CORPUSCULAR VOLUME 105.8 fL (79-99); NUCLEATED RED BLOOD CELLS 11.3 % (0.0-0.19); RED BLOOD CELL COUNT(AUTO) 1.1 MIL/uL (4.00-5.50); RED CELL DISTRIBUTION WIDTH 24.9 % (11.0-15.5); WHITE BLOOD COUNT (AUTO) 24.9 K/uL (4.8-10.8)
[2019-04-17 05:02] LABS: HEMATOCRIT 11.6 % (36-48)
[2019-04-17] MEDS ORDERED: VANCOMYCIN 500MG+NS 100ML 100 ML IV SCH (06:56)
[2019-04-17] MEDS: FERROUS FUMARATE 324 MG TABLET PO SCH ×3 (08:36→21:00)
[2019-04-17] MEDS: VITAMIN B COMPLEX 1 CAPSULE PO SCH (08:36)
[2019-04-17] MEDS: EXEMESTANE 25 MG PO SCH (08:37)
[2019-04-17] MEDS: FLUCONAZOLE 200 MG/NS 100 ML 100 ML IV SCH (10:17)
[2019-04-17] MEDS: EPOETIN ALFA 10,000 UNIT/ML VIAL SQ SCH (11:40)
[2019-04-17] MEDS: LORAZEPAM 0.5 MG TABLET PO PRN ×2 (11:50→21:00)
[2019-04-17] MEDS: MIRTAZAPINE 15 MG TABLET PO SCH (21:00)
[2019-04-17] MEDS: HYDROCODONE/ACETAMINOPHEN 5/325 MG TAB PO PRN (21:05)
[2019-04-18] MEDS: VANCOMYCIN 1GM+NS 250ML 250 ML IV SCH ×2 (03:19→12:00)
[2019-04-18 03:30] VITALS: BP 116/56
[2019-04-18 05:33] LABS: ALBUMIN 2.7 g/dL (3.5-5.0); BILIRUBIN,TOTAL 0.8 mg/dL (0.2-1.0); CREATININE 0.7 mg/dL (0.5-1.5); MAGNESIUM 2.1 mg/dL (1.80-2.40); TOTAL PROTEIN, SERUM 5.9 g/dL (6.0-8.3)
[2019-04-18 08:05] VITALS: BP 101/52
[2019-04-18] MEDS: EXEMESTANE 25 MG PO SCH (09:00)
[2019-04-18] MEDS: FERROUS FUMARATE 324 MG TABLET PO SCH ×3 (09:13→20:49)
[2019-04-18] MEDS: ZOSYN 3.375GM+NS 50ML 50 ML IV SCH ×2 (09:13→16:03)
[2019-04-18] MEDS: VITAMIN B COMPLEX 1 CAPSULE PO SCH (09:13)
[2019-04-18] MEDS: EPOETIN ALFA 10,000 UNIT/ML VIAL SQ SCH (09:42)
[2019-04-18] MEDS: FLUCONAZOLE 200 MG/NS 100 ML 100 ML IV SCH (10:47)
[2019-04-18 11:35] VITALS: BP 111/60
[2019-04-18] MEDS: LORAZEPAM 0.5 MG TABLET PO PRN ×2 (12:00→20:49)
[2019-04-18] MEDS ORDERED: COMPOUND IV REFRIGERATED 1 EACH IVSOLN MISC PRN (14:00)
[2019-04-18 16:00] VITALS: BP 118/63
--- NOTE | 2019-04-18 16:00 | NUR ---
TEMPERATURE 101.6 ORAL TEMPERATURE OF 101.6. TYLENOL PO PRN GIVEN ORDERED FOR TEMPERATURE PARAMETERS. DR. LOPEZ MADE AWARE, NEW ORDER FOR BLOOD CULTURES X2. PATIENT INSTRUCTED ON NEW ORDER AND NOT TO COVER WITH BLANKETS TO PREVENT TEMPERATURE SPIKE. WILL MONITOR CLOSELY AND RECHECK TEMPERATURE FOR FOLLOW UP.
[2019-04-18] MEDS: ACETAMINOPHEN 325 MG TAB PO PRN (16:04)
[2019-04-18 19:10] VITALS: BP 121/70
[2019-04-18] MEDS: MIRTAZAPINE 15 MG TABLET PO SCH (20:49)
[2019-04-18] MEDS: VANCOMYCIN 1.25 GM in SODIUM CHLORIDE 0.9% 250 ML IV SCH (20:49)
[2019-04-18 23:21] VITALS: BP 113/54
[2019-04-19] MEDS: ZOSYN 3.375GM+NS 50ML 50 ML IV SCH ×3 (00:04→18:09)
[2019-04-19] MEDS: ACETAMINOPHEN 325 MG TAB PO PRN (00:07)
[2019-04-19 03:30] VITALS: BP 118/66
[2019-04-19] MEDS: VANCOMYCIN 1.25 GM in SODIUM CHLORIDE 0.9% 250 ML IV SCH ×3 (04:37→20:34)
[2019-04-19] MEDS: HYDROCODONE/ACETAMINOPHEN 5/325 MG TAB PO PRN ×2 (04:41→21:46)
--- NOTE | 2019-04-19 07:15 | NUR ---
NOTE AAOX3. DNEIES PAIN OR DISCOMFORT. HAS BEEN UP TO BATHROOM AND SHE HAS BEEN WALKING WITHOUT THE USE OF O2. SHE WAS VERY SOB WITHOUT OR MINNIMAL EXERTION A FEW DAYS AGO WHEN HER BLOOD LEVELS WERE LOWER. WILL ORDER CBC TO RECHECK HER H/H.PALE SKIN NOTED BUT OVERALL SHE SEEMS DIFFERENT WITH MORE STRENGTH AND BETTER BREATHING. SHE DOES HAVE O2 AT 2LNC ON STANDBY. FAMILY AT HER SIDE.
[2019-04-19 07:59] VITALS: BP 119/62
[2019-04-19] MEDS: EXEMESTANE 25 MG PO SCH (09:00)
[2019-04-19] MEDS: FERROUS FUMARATE 324 MG TABLET PO SCH ×3 (10:27→20:34)
[2019-04-19] MEDS: VITAMIN B COMPLEX 1 CAPSULE PO SCH (10:27)
[2019-04-19] MEDS: FLUCONAZOLE 200 MG/NS 100 ML 100 ML IV SCH (10:27)
[2019-04-19] MEDS: EPOETIN ALFA 10,000 UNIT/ML VIAL SQ SCH (10:28)
[2019-04-19 11:07] LABS: CORRECTED WHITE BLOOD COUNT 20.3 K/uL (4.5-11.0); MEAN CORPUSCULAR HEMOGLOBIN 33.4 pg (27.0-33.0); MEAN CORPUSCULAR HGB CONC 31.6 g/dL (32.0-36.0); MEAN CORPUSCULAR VOLUME 105.6 fL (79-99); NUCLEATED RED BLOOD CELLS 10.6 % (0.0-0.19); RED BLOOD CELL COUNT(AUTO) 1.19 MIL/uL (4.00-5.50); RED CELL DISTRIBUTION WIDTH 23.7 % (11.0-15.5); WHITE BLOOD COUNT (AUTO) 22.5 K/uL (4.8-10.8)
[2019-04-19 11:12] VITALS: BP 107/58
[2019-04-19 11:24] LABS: HEMATOCRIT 12.6 % (36-48)
[2019-04-19 16:11] VITALS: BP 121/56
[2019-04-19 19:28] VITALS: BP 126/54
[2019-04-19] MEDS: LORAZEPAM 0.5 MG TABLET PO PRN (20:34)
[2019-04-19] MEDS: MIRTAZAPINE 15 MG TABLET PO SCH (20:34)
[2019-04-19 23:43] VITALS: BP 113/46
[2019-04-20] MEDS: ZOSYN 3.375GM+NS 50ML 50 ML IV SCH (00:13)
[2019-04-20] MEDS: ACETAMINOPHEN 325 MG TAB PO PRN (00:29)
[2019-04-20 03:15] VITALS: BP 115/47
[2019-04-20] MEDS: VANCOMYCIN 1.25 GM in SODIUM CHLORIDE 0.9% 250 ML IV SCH (04:00)
[2019-04-20 08:01] VITALS: BP 120/63
[2019-04-20] MEDS: EXEMESTANE 25 MG PO SCH (09:00)
[2019-04-20] MEDS: FLUCONAZOLE 200 MG/NS 100 ML 100 ML IV SCH (09:55)
[2019-04-20] MEDS: VITAMIN B COMPLEX 1 CAPSULE PO SCH (09:56)
[2019-04-20] MEDS: FERROUS FUMARATE 324 MG TABLET PO SCH ×2 (09:56→14:13)
[2019-04-20 11:09] VITALS: BP 120/61
[2019-04-20] MEDS ORDERED: VANCOMYCIN 1GM+NS 250ML 250 ML IV SCH (12:00)
[2019-04-20] MEDS: EPOETIN ALFA 10,000 UNIT/ML VIAL SQ SCH (12:20)
[2019-04-20] MEDS ORDERED: ZOSYN 3.375GM+NS 50ML 50 ML IV SCH (13:00)
[2019-04-20 16:30] VITALS: BP 118/59
== END 2019-04-20 16:34 | disposition home or self-care (01) | DRG 872 ==
LOC: EDH 14:38 → EDHIP 14:39 → 4BH 16:07
PROVIDERS: ADMIT Internal Medicine Hematology & Oncology; ATTEND Internal Medicine Hematology & Oncology
DX: A41.9 Sepsis, unspecified organism (principal); C79.51 Secondary malignant neoplasm of bone; E87.1 Hypo-osmolality and hyponatremia; D70.1 Agranulocytosis secondary to cancer chemotherapy; C50.919 Malignant neoplasm of unspecified site of unspecified female breast; I50.9 Heart failure, unspecified; D69.59 Other secondary thrombocytopenia; Z66 Do not resuscitate; D70.3 Neutropenia due to infection; F32.9 Major depressive disorder, single episode, unspecified; T45.1X5A Adverse effect of antineoplastic and immunosuppressive drugs, initial encounter; Y92.89 Other specified places as the place of occurrence of the external cause; Z74.01 Bed confinement status; Z85.3 Personal history of malignant neoplasm of breast; Z80.3 Family history of malignant neoplasm of breast
CPT/HCPCS: 36415; 80053; 80202; 83735; 85027; 85060; 87040; 87804; G0378; J0885; J1450; J1756; J2543; J3370; J7030

== ENCOUNTER 2019-07-05 10:20 | Observation (INO) | payer OTHER ==
[~2019-07-05] VITALS: Ht 165.1 cm; Wt 66.5 kg
[~2019-07-05 10:20] MED LIST changes: -AMOX-429 PO; +ANAS1TAB7 PO; -CELE-84 PO; -CIPR750T6 PO; -DRON2.5C12 PO; +HYDR-4060 PO; -LETR2.5T6 PO; -LORA0.5T2 PO; +LORA0.5T83 PO; +MIRT7.5T11 PO; +NAPR-1023 PO; -OCEAN NASAL; -ONDA8TAB12 PO; +ONDA8TAB5 PO; -PALB125C PO; +RIBO600T PO; -RISP0.5T61 PO; -SILV20CR11 TP
[2019-07-05] MEDS ORDERED: HYDROMORPHONE 1 MG/1 ML AMP ONE ×2 (11:00→13:39)
[2019-07-05] MEDS ORDERED: ONDANSETRON HCL 4 MG/2 ML VIAL ONE (11:00)
[2019-07-05 11:46] LABS: CREATININE 0.9 mg/dL (0.5-1.5); POTASSIUM 4.9 mmol/L (3.5-5.1)
[2019-07-05 11:49] LABS: INR 1.16 (0.85-1.15); PARTIAL THROMBOPLASTIN TIME 48.3 SEC (26.3-35.5); PROTHROMBIN TIME 12.1 SEC (9.6-11.6)
[2019-07-05 11:57] LABS: ALBUMIN 2.5 g/dL (3.5-5.0); BILIRUBIN,TOTAL 0.7 mg/dL (0.2-1.0); TOTAL PROTEIN, SERUM 5.9 g/dL (6.0-8.3)
[2019-07-05 12:39] LABS: BASOPHILS % (AUTO) 0.8 % (0.0-5.0); EOSINOPHILS % (AUTO) 0.6 % (0.0-8.0); LYMPHOCYTES % (AUTO) 30.7 % (21.0-51.0); MEAN CORPUSCULAR HGB CONC 27.2 g/dL (32.0-36.0); MEAN CORPUSCULAR VOLUME 117.5 fL (79-99); MONOCYTES % (AUTO) 14.1 % (3.0-13.0); NEUTROPHILS % (AUTO) 46.1 % (40.0-77.0); NUCLEATED RED BLOOD CELLS 12.2 % (0.0-0.19); PLATELET COUNT (AUTO) 20 K/uL (130-400); RED BLOOD CELL COUNT(AUTO) 0.97 MIL/uL (4.00-5.50); RED CELL DISTRIBUTION WIDTH 25.3 % (11.0-15.5); WHITE BLOOD COUNT (AUTO) 3.6 K/uL (4.8-10.8)
[2019-07-05 12:43] LABS: HEMATOCRIT 11.4 % (36-48)
[2019-07-05 13:23] LABS: APPEARANCE,URINE Clear (CLEAR); BILIRUBIN,URINE Negative (NEGATIVE); COLOR,URINE Yellow (YELLOW); GLUCOSE, URINE (UA) Negative (NEGATIVE); KETONES,URINE 40 mg/dL (NEGATIVE); LEUKOCYTE ESTERASE ,URINE Trace (NEGATIVE); NITRATE,URINE Negative (NEGATIVE); OCCULT BLOOD,URINE Negative (NEGATIVE); PROTEIN,URINE Trace mg/dL (NEGATIVE); UROBILINOGEN,URINE 0.2 mg/dL (0.2-1.0)
[2019-07-05 13:24] LABS: BAND NEUTROPHILS % (MANUAL) 2 % (0-2); BASOPHILS % (MANUAL) 1 % (0-2); BLASTS, MANUAL % 2 (0-0); LYMPHOCYTES % (MANUAL) 26 % (22-44); MAN.DIFF COMMENT-IMPRESSION MANUAL DIFFERENTIAL; MONOCYTES % (MANUAL) 16 % (2-9); MYELOCYTES % 1 % (0-0); SEGMENTED NEUTROPHILS % 52 % (40-70)
[2019-07-05 13:43] LABS: BACTERIA,URINE Rare /HPF (None Seen); MUCUS,URINE Few LPF (None Seen); RBC,URINE 0-1 /HPF (0-1); SQUAMOUS EPITHELIAL CELL,UR Rare /HPF (0-2)
[2019-07-05 14:39] LABS: HEMATOCRIT 11.5 % (36-48)
[2019-07-05] MEDS ORDERED: ONDANSETRON HCL 4 MG/2 ML VIAL IVP PRN (15:15)
[2019-07-05] MEDS ORDERED: HYDROMORPHONE 1 MG/1 ML AMP IVP PRN (15:15)
[2019-07-05 16:05] VITALS: BP 145/72
--- NOTE | 2019-07-05 16:11 | NUR ---
received patient with moderate restlessness, patient verbalized that she has moderate abdominal pain. checked the emar and the dilaudid is not due for the patient yet. vital signs will be obtain. will monitor the patient. Addendum: 07/05/19 at 1616 by SILKE COLON RN RN Amended: Links added.
[2019-07-05] MEDS ORDERED: HYDROMORPHONE 1 MG/1 ML AMP IVP SCH (17:15)
[2019-07-05] MEDS ORDERED: DOCU100T PO (17:23)
[2019-07-05] MEDS ORDERED: MIRT7.5T11 PO (17:23)
[2019-07-05] MEDS ORDERED: ONDA8TAB12 PO (17:23)
[2019-07-05] MEDS ORDERED: ANAS1TAB7 PO (17:23)
[2019-07-05] MEDS ORDERED: PANT40TA25 PO (17:23)
[2019-07-05] MEDS: DEXAMETHASONE SOD PHOSPHATE 4 MG/ML 1ML VIAL IVP SCH ×2 (17:33→20:32)
[2019-07-05] MEDS: SODIUM CHLORIDE 0.9% 1000ML 1,000 ML IV SCH (17:34)
[2019-07-05] MEDS ORDERED: EPOETIN ALFA 10,000 UNIT/ML VIAL SQ NR (18:00)
[2019-07-05] MEDS ORDERED: LORAZEPAM 1 MG TABLET PO PRN (18:00)
--- NOTE | 2019-07-05 18:25 | NUR ---
CLARIFY WITH DR. TIWARI ABOUT THE ZOMETA AND EXPLAINED TO HIM THAT WE DON'T CARRY THE MEDICATION HERE BUT WE HAVE A AREDIA 90 MG. HE VERBALIZED THAT AREDIA IS OKAY FOR THE PATIENT.
--- NOTE | 2019-07-05 18:35 | NUR ---
NOTIFIED DOLLY MARCUS OF THE CONSULT. SHE VERBALIZED TO CALL THE ANSWERING SERVICE. CALL THE ANSWERING SERVICE OF [facility] FOR THE CONSULT. WAITING FOR CALL BACK OF WHO IS TEMPERATURE REGULATOR PYROMETER.
[2019-07-05] MEDS ORDERED: SODIUM CHLORIDE 0.9% 500ML 500 ML IV SCH (19:00)
[2019-07-05] MEDS ORDERED: COMPOUND IV MISC 1 EACH IVSOLN MISC PRN (19:15)
[2019-07-05] MEDS ORDERED: PAMIDRONATE DISODIUM 90MG VIAL 90 MG in SODIUM CHLORIDE 0.9% 1000ML 1,000 ML IV SCH (19:15)
[2019-07-05 20:24] VITALS: BP 117/65
[2019-07-05] MEDS: HYDROMORPHONE HCL 2 MG/ML VIAL IVP PRN (20:28)
[2019-07-05] MEDS: IRON SUCROSE COMPLEX 100 MG in SODIUM CHLORIDE 0.9% 50 ML IV SCH (20:32)
[2019-07-06] MEDS: HYDROMORPHONE HCL 2 MG/ML VIAL IVP PRN ×4 (00:22→11:18)
[2019-07-06 00:28] VITALS: BP 127/71
[2019-07-06] MEDS: DEXAMETHASONE SOD PHOSPHATE 4 MG/ML 1ML VIAL IVP SCH ×3 (03:17→14:09)
[2019-07-06] MEDS: SODIUM CHLORIDE 0.9% 1000ML 1,000 ML IV SCH ×2 (03:17→11:15)
[2019-07-06 04:28] VITALS: BP 132/62
[2019-07-06 07:30] VITALS: BP 129/63
[2019-07-06] MEDS: IRON SUCROSE COMPLEX 100 MG in SODIUM CHLORIDE 0.9% 50 ML IV SCH (09:00)
[2019-07-06] MEDS ORDERED: PANTOPRAZOLE SODIUM 40 MG TABLET.DR PO SCH (09:00)
--- NOTE | 2019-07-06 11:25 | NUR ---
CM NOTE NEW REFERRAL FOR PALLATIVE CARE. MEET WITH PATIENTS MOTHER OUTSIDE OF ROOM DUE TO PATIENT UNRESPONSIVE. PER MOTHER, WANTS INFORMATION FROM [facility] TO MAKE DECISION ABOUT CARE. JAQUELINE SIGNED, REQUEST TO BE SENT TO [facility].
[2019-07-08] MEDS ORDERED: SODIUM CHLORIDE 0.9% 500ML 500 ML IV SCH (19:00)
== END 2019-07-06 11:43 | disposition expired ==
LOC: EDH 10:20 → EDHIP 13:54 → 4CH 15:59
PROVIDERS: ADMIT Internal Medicine Hematology & Oncology; ATTEND Internal Medicine Hematology & Oncology
DX: C50.919 Malignant neoplasm of unspecified site of unspecified female breast (principal); C78.7 Secondary malignant neoplasm of liver and intrahepatic bile duct; C79.51 Secondary malignant neoplasm of bone; C79.31 Secondary malignant neoplasm of brain; E83.52 Hypercalcemia; E86.0 Dehydration; G89.3 Neoplasm related pain (acute) (chronic); D64.9 Anemia, unspecified; R11.2 Nausea with vomiting, unspecified; Z66 Do not resuscitate; Z51.5 Encounter for palliative care; Z90.49 Acquired absence of other specified parts of digestive tract
CPT/HCPCS: 36415; 74176; 80053; 81001; 82150; 82550; 82948; 83690; 84484; 85014; 85018; 85025; 85610; 85730; 86850; 86900; 86901; 93005; 96361; 96365; 96366 ×2; 96367; 96372; 96375; 96376 ×2; 99291; G0378 ×7; J0885; J1100 ×4; J1170 ×8; J1756; J2405; J2430; J7030